=== PATIENT | male | born 1960 ===

== ENCOUNTER 2025-02-10 09:41 | Emergency (ER) | payer BC, SELFPAY ==
--- NOTE | ~2025-02-10 | CT_ITS ---
EXAMINATION: CT cervical spine wo con DATE: 02/10/2025 09:57 INDICATION: Fall. TECHNIQUE: Computed tomography (CT) of the cervical spine was performed without intravenous contrast. Automated exposure control and iterative reconstruction technique were employed. The dose-length product was 235.00 mGy-cm. COMPARISON: None FINDINGS: There is kyphosis of cervical spine. There is 10 degrees levoscoliosis of cervical spine. Vertebral body heights are normal. There is mildly decreased disc height at C4-C5. There is multilevel [id number] facet joint osteoarthritis. There is multilevel mild uncovertebral joint osteoarthritis. On the right, there is mild neural foraminal stenosis at C7-T1. There is mild central canal stenosis at C4-C5. IMPRESSION: 1. No fracture. 2. Mild cervical spondylosis. Reviewed, dictated and finalized at location E.
--- NOTE | ~2025-02-10 | CT_ITS ---
EXAMINATION: CT brain wo con DATE: 02/10/2025 09:57 INDICATION: Fall. TECHNIQUE: Computed tomography (CT) of the head was performed without intravenous contrast. The mA was adjusted according to patient size. Iterative reconstruction technique was employed. The dose-length product was 605.33 mGy-cm. COMPARISON: None FINDINGS: There is no intracranial hemorrhage, acute infarction, or abnormal intracranial mass lesion. The ventricles are normal in size. There is a left anterior superior scalp laceration. There is mild mucosal thickening in the paranasal sinuses. The mastoid air cells are normal. The orbits are normal. IMPRESSION: 1. Normal brain. Reviewed, dictated and finalized at location E. IMPRESSION: 1. Normal brain.
[2025-02-10 09:45] VITALS: BP 148/89; PULSE 73; RESP 16; TEMP 36.4; O2SAT 99
--- NOTE | 2025-02-10 11:58 | ED_ITS ---
HPI - Head Injury General Chief complaint: Head Injury Stated complaint: TRIP AND FALL HEAD HIT STEP Time Seen by Provider: 02/10/25 11:07 Source: patient and RN notes reviewed Mode of arrival: EMS Limitations: no limitations History of Present Illness HPI Narrative: 64-year-old male presents to ER complaining of fall today. Patient was walking outside of the building when he tripped and fell up steps landing on his head. Patient denies any loss of consciousness, headaches, nausea, vomiting, dizziness, lightheadedness, chest pain, breathing problems, slurred speech, confusion, seizures, or any other symptoms. Patient is unsure of his tetanus status. Patient has a laceration to the top of his head. Patient denies any significant past medical problems. Patient denies taking any blood thinners. Related Data Allergies Allergy/AdvReac Type Severity Reaction Status Date / Time No Known Allergies Allergy Verified 02/10/25 09:42 Review of Systems Review of Systems: CONSTITUTIONAL: Denies fever, chills, or sweats. EYES: Denies visual changes, redness, or discharge. ENT: Denies rhinorrhea, congestion, sore throat, or otalgia. CARDIOVASCULAR: Denies chest pain, palpitations, dizziness, lightheadedness, or edema. RESPIRATORY: Denies cough or dyspnea. GASTROINTESTINAL: Denies abdominal pain, nausea, vomiting, or diarrhea. GENITOURINARY: Denies dysuria or hematuria. SKIN: Denies rash or itching. Positive for laceration. MUSCULOSKELETAL: Denies back pain, joint pain, or myalgia. NEUROLOGIC: Denies headache, loss of consciousness, focal weakness, slurred speech, facial droop, numbness, or weakness. PSYCHIATRIC: Denies anxiety or depression. All other systems reviewed are negative, except as documented in HPI. PMFSH Comments At the time of my signature, I reviewed and agree with the nursing past medical, surgical, social, and family history. There is no relevant family history pertinent to the patient complaint. Exam Narrative: GENERAL: This is a well-nourished, well-developed adult, in no apparent distress. They are non ill-appearing, nontoxic appearing. HEAD: normocephalic. Laceration to the left medial proximal scalp near the forehead. Lacerations measuring approximately 5 cm long. It is irregular. It is on approximated but approximates well with manipulation. No area of fluctuance, no induration, no surrounding cellulitis. Nontender to palpate. No other traumatic injuries to face or head. EYES: Sclera clear/white. Conjunctiva normal. Vision is grossly intact. Extraocular movements intact. Pupils PERRLA. No hyphema or subconjunctival hemorrhage. EARS: External ears normal, Hearing grossly intact. Auditory canals clear without redness or swelling. TMs with good cone of light, pearly swenson without erythema or swelling. No hemotympanum. NOSE: External nose normal Nasal turbinates are redness or swelling. No rhinorrhea. No septal hematoma. THROAT: Mucous membranes moist, posterior pharynx clear without redness or swelling. Uvula midline. NECK: Neck supple, non-tender without lymphadenopathy, masses or thyromegaly. No cervical point tenderness, crepitus, or step-offs. CARDIOVASCULAR: Regular rate and rhythm without murmurs, gallops, or rubs. RESPIRATORY: Clear to auscultation. Breath sounds equal bilaterally. No wheezes, rales, or rhonchi. SKIN: warm, Dry, intact with no suspicious lesions or rash, good texture and turgor. NEURO: awake, alert, and oriented to person, place and time. There were no obvious focal neurologic abnormalities. EXTREMITIES: No joint tenderness, effusion, or edema noted. BACK: Nontender without deformity. No CVA tenderness. No thoracic or lumbar point tenderness, crepitus, or step-offs. Course Course Emergency Course: Portions of this record may have been created with voice recognition software Vital Signs Vital signs: Vital Signs Temperature 97.6 F 02/10/25 09:45 Pulse Rate 73 02/10/25 09:45 Respiratory Rate 16 02/10/25 09:45 Blood Pressure 148/89 H 02/10/25 09:45 Pulse Oximetry 99 02/10/25 09:45 Temperature 97.6 F 02/10/25 09:45 Pulse Rate 73 02/10/25 09:45 Respiratory Rate 16 02/10/25 09:45 Blood Pressure 148/89 H 02/10/25 09:45 Pulse Oximetry 99 02/10/25 09:45 Reviewed Procedures Laceration Laceration 1: Date: 02/10/25 Time: 11:50 Site: scalp Side (If applicable): left Size (cm): 5 Description: irregular Depth: simple, single layer Local Anesthetic: lidocaine 1% and with epi Amount of anesthesia used (mL): 2.5 Pre-repair: wound explored, irrigated extensively and minor debridement ====== Skin Level ====== Skin layer closed with: nylon Size (cm): 4-0 Number of sutures: 7 Technique: simple, interrupted ====== Subcutaneous Layer ====== ====== Muscle Layer ====== ====== Tendon Layer ====== Dressing: Antibiotic ointment. Critical Care Time Critical Care Time Critical Care Time: No Discharge Plan Discharge Clinical Impression: Fall Qualifiers: Encounter type: initial encounter Qualified Code(s): W19.XXXA - Unspecified fall, initial encounter Laceration of head Qualifiers: Encounter type: initial encounter Location of open wound of head: scalp Foreign body presence: without foreign body Qualified Code(s): S01.01XA - Laceration w ithout foreign body of scalp, initial encounter Patient Disposition: Home Condition: Stable Instructions: Laceration (ED), Head Injury (ED) Additional Instructions: H your er tetanus is updated today. CT of your brain and cervical spine were negative for any fractures or acute findings. Your sutures need to be removed in 7 days. ?Wear the dressing that has been applied for the first 24 hours to allow a scab to start forming. ?After this, you may remove and wash as normal with soap and water. ?Do NOT wash with peroxide or alcohol. You may apply antibiotic ointment daily or Vaseline daily to the wound. Avoid dirty water to the wound has healed completely. Take tylenol or ibuprofen at home as needed for pain. Follow instructions on the bottle. Follow up with your PCP 3-5 days. Please return to the ER if you develops severe headaches, vision changes, dizziness, lightheadedness, nausea, vomiting, chest pain, breathing problems, one-sided weakness, slurred speech, facial drooping, or any signs of infection to the wound such as increased redness, swelling, pain, fevers, green/yellow drainage come by eczema chills, or any serious concerns. Patient Language: Tunisian Follow-up/Referrals: UNKNOWN,DOCTOR [Primary Care Provider] Time of Disposition: 12:07
[2025-02-10] MEDS: TETANUS,DIPHTHERIA,AC PERTUSSIS ADULT (0.5 ML) BOOSTRIX IM (12:04)
--- OUTSIDE RECORDS SUMMARY | 2025-02-10 14:03 | XMS_ITS | Clinical Summary ---
Author Organization [facility] A Address [address] [place] [address] Care Team Providers Care Sales Support Manager Name Role Phone Jhonatan Archer MD Unavailable [phone] Frankie Fisher MD Primary Care Provider Allergies No known active allergies Medications metFORMIN (GLUCOPHAGE) 500 mg tablet Take 1 tablet (500 mg total) by mouth 2 (two) times a day with meals 60 tablet 11 4 Active atorvastatin (LIPITOR) 20 mg tabletIndications:P ure hypercholesterolemi a,Type 2 diabetes mellitus with hyperlipidemia (HCC) Take 1 tablet (20 mg total) by mouth daily 90 tablet [address] (PROTONIX) 40 mg EC tablet Take 1 tablet by mouth once daily 90 tablet 5 Active famotidine (PEPCID) 40 mg tablet Take 1 tablet by mouth nightly 90 tablet 5 Active Active Problems Problem Noted Date Diagnosed Date S/P laparoscopic cholecystectomy 02/11/2024 Assessment & Plan (02/11/2024 11:44 AM CDT): Status post recent laparoscopic cholecystectomy for cholecystitis with cholelithiasis, he has postop follow-up appointment today, has intermittent pain and still on limited duty for additional 7-10 days, refills provided for pain medication for use intermittently which he has already been using less frequently and will not need any more refills after this Pulmonary nodule 08/10/2021 Overview (04/03/2024): 6mm RLL on ct 01/2021 CT Chest wo contrast 04/21 IMPRESSION: No acute findings in the chest. Pulmonary nodules measuring up to 6 mm are stable since 09/14/2021. No specific further follow-up is recommended by Fleischner society criteria, unless clinically warranted. Interval cholecystectomy. Several small calcific densities at the medial aspect of the gallbladder fossa and along the posterior right radha liver may be retained stones Assessment & Plan (07/09/2023 2:25 PM CDT): Patient aware CT chest due September 2023 and will call to schedule. Assessment & Plan (03/05/2023 1:23 PM SALES SUPPORT MANAGER): CT chest due, call for results. Assessment & Plan (08/23/2022 9:31 AM CDT): One year follow-up CT chest due in August and has already been ordered and patient instructed to call scheduling for setting up a date for the evaluation. Call back for results Assessment & Plan (02/24/2022 4:56 PM CDT): Repeat CT chest August 2022. Assessment & Plan (08/10/2021 9:22 AM CDT): Found on CT abdomen pelvis in January with recommendations for 6-12 month follow-up. Patient former smoker therefore will check at the end of August and he will call back for results Esophagitis 02/08/2021 Overview (06/29/2024): Repeat EGD 04/2026 Follows with GI Assessment & Plan (06/29/2024 2:24 PM SALES SUPPORT MANAGER): - chronic condition, stable status - following with GI - currently on famotidine in the evening and pantoprazole in the morning per GI. Repeat EGD due April 2026. The current medical regimen is effective; continue present plan and medications. EGD with gastritis and esophagitis January 2021 EGD 10/2021 severe esophagitis without blount's, repeat one year recommended EGD 04/2023 with continued esophagitis neg for blount's Assessment & Plan (11/12/2023 2:50 PM CDT): - chronic condition, stable status - following with GI - currently on famotidine in the evening and pantoprazole in the morning per GI. Repeat EGD due April 2026. EGD with gastritis and esophagitis January 2021 EGD 10/2021 severe esophagitis without blount's, repeat one year recommended EGD 04/2023 with continued esophagitis neg for blount's Assessment & Plan (07/09/2023 2:24 PM CDT): Continue famotidine in the evening and pantoprazole in the morning. Repeat EGD due April 2026. Assessment & Plan (03/05/2023 1:24 PM SALES SUPPORT MANAGER): EGD scheduled for 04/2023. Assessment & Plan (08/23/2022 9:33 AM CDT): Restart PPI and EGD ordered for end of October. Assessment & Plan (02/24/2022 4:57 PM CDT): Continue PPI and repeat EGD October 2022. Assessment & Plan (08/10/2021 9:22 AM CDT): Patient needs to follow-up with Dr. Jiang regarding repeat EGD and patient letter reprinted from [facility] with his phone number. Assessment & Plan (02/08/2021 9:47 AM CDT): Continue his pantoprazole and follow-up with GI as a recommended 1 month. Iron deficiency anemia secon dayron to inadequate dietary iron intake 12/07/2020 Overview (07/09/2023): Colonoscopy hemorrhoids only December 2019 EGD with gastritis and esophagitis January 2021 CT abdomen pelvis January 2021 without sources of iron loss. UA neg for blood 01/2021. Iron levels and CBC improved quickly with iron supplementation January 2021 EGD 10/2021 severe esophagitis without blount's, repeat one year recommended EGD 04/2023 with continued esophagitis neg for blount's Assessment & Plan (06/29/2024 2:23 PM SALES SUPPORT MANAGER): - chronic condition, well controlled - anemia has resolved - currently on once daily iron supplementation 325 mg daily - most recent lab as shown below The current medical regimen is effective; continue present plan and medications. Colonoscopy hemorrhoids only December 2019 EGD with gastritis and esophagitis January 2021 CT abdomen pelvis January 2021 without sources of iron loss. UA neg for blood 01/2021. Iron levels and CBC improved quickly with iron supplementation January 2021 EGD 10/2021 severe esophagitis without blount's, repeat one year recommended EGD 04/2023 with continued esophagitis neg for blount's Lab Results Component Value Date IRON 42 (L) 06/26/2024 TIBC 315 06/26/2024 FERRITIN 58 06/26/2024 Lab Results Component Value Date WBC 5.5 06/26/2024 HGB 13.3 06/26/2024 HCT 42.6 06/26/2024 MCV 85.0 06/26/2024 LABPLAT 215 06/26/2024 Assessment & Plan (11/12/2023 2:35 PM CDT): - chronic condition, improved but not at goal - patient got restarted back on daily iron supplementation by previous PCP - most recent lab as shown below - continue daily supplementation Colonoscopy hemorrhoids only December 2019 EGD with gastritis and esophagitis January 2021 CT abdomen pelvis January 2021 without sources of iron loss. UA neg for blood 01/2021. Iron levels and CBC improved quickly with iron supplementation January 2021 EGD 10/2021 severe esophagitis without blount's, repeat one year recommended EGD 04/2023 with continued esophagitis neg for blount's Lab Results Component Value Date IRON 52 11/08/2023 TIBC 320 11/08/2023 FERRITIN 48 11/08/2023 Lab Results Component Value Date WBC 5.6 11/08/2023 HGB 14.0 11/08/2023 HCT 43.5 11/08/2023 MCV 84.0 11/08/2023 LABPLAT 191 11/08/2023 Assessment & Plan (07/09/2023 2:24 PM CDT): Restart once daily iron supplementation. Repeat iron levels and CBC before next visit. Assessment & Plan (03/05/2023 1:23 PM SALES SUPPORT MANAGER): Check cbc and iron levels this week and call for results. Assessment & Plan (08/23/2022 9:32 AM CDT): Has been off of iron since last visit. Repeat iron levels and CBC tomorrow and call back for results. Restart PPI. Capsule endoscopy not done and may need to be done depending on results of his EGD and iron levels and blood counts. Assessment & Plan (02/24/2022 4:59 PM CDT): Restart iron supplementation. Capsule endoscopy recommended. Repeat EGD October 2022. Continue PPI Assessment & Plan (08/10/2021 9:21 AM CDT): Continue holding iron supplementation. Check CBC and iron levels before next visit. EGD with gastritis and esophagitis January 2021. Colonoscopy with hemorrhoid December 2019. CT abdomen pelvis January 2020 without sources of bleeding. UA negative for blood in January 2021. Will need to consider capsule endoscopy if iron counts or hemoglobin drop by next visit off of iron supplementation. Assessment & Plan (02/08/2021 9:47 AM CDT): Continue iron supplement 1 tablet daily for now. Repeat iron levels and CBC before next visit. If normalized and no other cause for iron deficiency found between now and then, would recommend holding iron supplementation thereafter to see if iron levels and CBC hold without supplementation. Follow-up with GI in 1 month regarding iron deficiency and his abnormal EGD.. Assessment & Plan (12/07/2020 11:29 AM CDT): Fairly normal colonoscopy except for hemorrhoids last December. EGD and UA now. Start iron tablets. Repeat iron levels and CBC in 2 months. Further workup pending EGD results. May need GI referral for capsule endoscopy and/or treatment of his hemorrhoids. Warning signs of worsened anemia discussed at length which would prompt repeat visit here or to the ER. Will see him back in 2 months for physical sooner if needed. Pure hypercholesterolemia 01/19/2020 Assessment & Plan (06/29/2024 2:22 PM SALES SUPPORT MANAGER): - chronic condition - status: is adequately controlled. - current management/medications: Atorvastatin 20 mg daily, states has missed it for 2 days, encouraged to be more consistent with it - other comorbid conditions:hypertension, DM2 - patient is compliant with medications. - most recent LDL as shown below - maintain a healthy weight, diet - will monitor closely The current medical regimen is effective; continue present plan and medications. Lab Results Component Value Date LDLCALC 110 06/26/2024 LDLCALC 86 11/08/2023 LDLCALC 71 03/06/2023 Lab Results Component Value Date TRIG 68 06/26/2024 TRIG 118 11/08/2023 TRIG 86 03/06/2023 Lab Results Component Value Date ALT 35 02/01/2024 AST 25 02/01/2024 ALKPHOS 89 02/01/2024 BILITOT 0.4 02/01/2024 Assessment & Plan (11/12/2023 2:33 PM CDT): - chronic condition - status: is adequately controlled. - current management/medications: Atorvastatin 20 mg daily - other comorbid conditions:hypertension, DM2 - patient is compliant with medications. - most recent LDL as shown below - maintain a healthy weight, diet - will monitor closely - continue current management Lab Results Component Value Date LDLCALC 86 11/08/2023 LDLCALC 71 03/06/2023 LDLCALC 76 08/24/2022 Lab Results Component Value Date TRIG 118 11/08/2023 TRIG 86 03/06/2023 TRIG 120 08/24/2022 Lab Results Component Value Date ALT 35 11/08/2023 AST 23 11/08/2023 ALKPHOS 101 11/08/2023 BILITOT 0.4 11/08/2023 Assessment & Plan (07/09/2023 2:24 PM CDT): Well controlled on current therapy and will check a lipid panel and LFTs in 4months. Assessment & Plan (03/05/2023 1:24 PM SALES SUPPORT MANAGER): Cont atorvastatin and check lipids/lfts this week and call for results. Assessment & Plan (08/23/2022 9:32 AM CDT): Continues atorvastatin check lipids and LFTs tomorrow call back for results. Check before next visit as well. Diet exercise discussed. Assessment & Plan (02/24/2022 4:57 PM CDT): Well controlled on current therapy and will check a lipid panel and LFTs in 6 months. Assessment & Plan (08/10/2021 9:21 AM CDT): Well controlled on current therapy and will check a lipid panel and LFTs in 6 months. Assessment & Plan (02/08/2021 9:44 AM CDT): Well controlled on current therapy and will check a lipid panel and LFTs in 6 months. Assessment & Plan (12/07/2020 11:27 AM CDT): Make sure he is taking his atorvastatin each and every day. Assessment & Plan (08/12/2020 9:14 AM CDT): Well controlled on current therapy and will check a lipid panel and LFTs in 4months. Assessment & Plan (04/16/2020 12:14 PM SALES SUPPORT MANAGER): Well controlled on current therapy and will check a lipid panel and LFTs in 4 months. Assessment & Plan (01/19/2020 2:13 PM CDT): He has an elevated risk for ASCVD and therefore recommend atorvastatin 20 mg p.o. q.h.s. and warned of potential side effects and call back if any develop. Check lipids and LFTs before next visit in 3 months. Type 2 diabetes mellitus with hyperlipidemia Assessment & Plan (06/29/2024 2:24 PM SALES SUPPORT MANAGER): - chronic condition, well controlled - goal A1c <7 - most recent A1c as shown below - urine albumin creatinine ratio - up to date - Currently on Atorvastatin 20 mg nightly - diabetic medications - Metformin 500 mg BID - most recent labs as shown below - recommend getting a dilated eye exam The current medical regimen is effective; continue present plan and medications. Lab Results Component Value Date HGBA1C 6.8 (H) 06/26/2024 HGBA1C 6.6 02/11/2024 HGBA1C 6.9 (H) 11/08/2023 Lab Results Component Value Date LDLCALC 110 06/26/2024 CREATININE 0.92 02/01/2024 Assessment & Plan (02/11/2024 12:09 PM CDT): - chronic condition, improved - most recent A1c as shown below - urine albumin creatinine ratio - up to date - Currently on Atorvastatin 20 mg nightly - diabetic medications - he was started on Metformin 500 mg BID at time of discharge from hospital, continue current medication - most recent labs as shown below - recommend getting a dilated eye exam - continue current management Lab Results Component Value Date HGBA1C 6.6 02/11/2024 HGBA1C 6.9 (H) 11/08/2023 HGBA1C 6.6 07/09/2023 Lab Results Component Value Date LDLCALC 86 11/08/2023 CREATININE 0.92 02/01/2024 Assessment & Plan (11/12/2023 2:32 PM CDT): - chronic condition, stable status - A1c well controlled with diet exercise. Continue for now check A1c before next visit. - urine albumin creatinine ratio - up to date - Statin use - current, atorvastatin 20 mg nightly - diabetic medications - none - most recent labs as shown below - continue current management Lab Results Component Value Date HGBA1C 6.9 (H) 11/08/2023 HGBA1C 6.6 07/09/2023 HGBA1C 7.2 (H) 08/24/2022 Lab Results Component Value Date LDLCALC 86 11/08/2023 CREATININE 1.17 11/08/2023 Assessment & Plan (07/09/2023 2:24 PM CDT): A1c well controlled with diet exercise. Continue for now check A1c before next visit. Assessment & Plan (03/05/2023 1:40 PM SALES SUPPORT MANAGER): Check labs today and call for results. Patient aware that will start metformin if A1c above 7.. Assessment & Plan (08/23/2022 9:31 AM CDT): Continue his atorvastatin and efforts at diet exercise and weight loss and labs will be done tomorrow and he should call back for results. Check again before next visit as well. Assessment & Plan (02/24/2022 4:56 PM CDT): A1c, LDL, and blood pressure currently well controlled on current regimen. Check a yearly diabetic eye exam and blood sugars daily. Monofilament testing is intact. Assessment & Plan (08/10/2021 9:21 AM CDT): A1c, LDL, and blood pressure currently well controlled on current regimen. Check a yearly diabetic eye exam and blood sugars daily. Monofilament testing is intact. Assessment & Plan (02/08/2021 9:45 AM CDT): A1c, LDL, and blood pressure currently well controlled on current regimen. Check a yearly diabetic eye exam and blood sugars daily. Monofilament testing is intact. Assessment & Plan (12/07/2020 11:27 AM CDT): A1c creeping up slowly. Importance of diet exercise discussed. Check labs after next visit. Assessment & Plan (08/12/2020 9:14 AM CDT): A1c at goal. Stressed importance of diet exercise. Check labs before next visit. Assessment & Plan (04/16/2020 12:14 PM SALES SUPPORT MANAGER): Reduce sugars and carbs and increase exercise and lose a few lb and he is warned of the proximity to diabetes. Check fasting blood sugar and A1c before next visit. Assessment & Plan (01/19/2020 2:13 PM CDT): Patient should reduce sugar and carbs, increase exercise, maintain proper body weight, and will check an A1c once or twice yearly. History of insomnia 01/19/2020 Overview (12/07/2020): Failed dayvigo 10mg, zzquil Assessment & Plan (02/08/2021 9:45 AM CDT): Increase trazodone to 2 tablets at bedtime. If no improvement after 4 days then increase to 3 tablets at bedtime for 1 week. If no improvement call back for alternatives. Assessment & Plan (12/07/2020 11:28 AM CDT): Stop dayvigo. Start trazodone 50 mg at bedtime. Increase to 100 mg if needed. Assessment & Plan (08/12/2020 9:14 AM CDT): Increased dayvigo to 10mg and call back if no improvement. Consider trazodone if needed. Assessment & Plan (04/16/2020 12:13 PM SALES SUPPORT MANAGER): Trial of Dayvigo and side effects discussed and call back if any develop. Ten day voucher provided. Call back if needs higher dose. Assessment & Plan (01/19/2020 2:13 PM CDT): Trial of ZZZquil and call back if no improvement. Mass of left submandibular region 12/21/2019 Overview (11/12/2023): s/p left submandbular gland excision in 11/2020 Assessment & Plan (08/12/2020 9:14 AM CDT): Follow-up with his mitigation supervisor for excision as they direct. Assessment & Plan (04/16/2020 12:14 PM SALES SUPPORT MANAGER): Follow-up with his mitigation supervisor for excision as they direct. Assessment & Plan (02/24/2020 1:54 PM CDT): Excision of a Left Subplatysma Neck Mass Risks and complications: Anesthesia, bleeding, infection, benign versus malignant pathology, recurrence of lesion, injury to arteries, nerves and veins, scarring and need for further treatment Assessment & Plan (01/19/2020 2:12 PM CDT): ENT evaluation later today for further management. Assessment & Plan (12/21/2019 4:48 PM CDT): Currently asymptomatic. Check LDH and CT soft tissues neck and further orders pending results. Will most likely need otolaryngology consultation. Resolved Problems Problem Noted Date Diagnosed Date Resolved Date Cholecystitis 01/27/2024 02/11/2024 Abdominal pain 01/23/2024 02/11/2024 Calculus of gallbladder 08/10/202101/28 Overview (08/10/2021): Numerous stones ct 02/2021 Tooth pain 02/08/2021 11/12/2023 Assessment & Plan (02/08/2021 9:48 AM CDT): With right lower tooth pain and associated lymph node swelling that comes and goes with antibiotic therapy, he probably has a carry or underlying infection/abscess that needs dental evaluation and he is aware to see his dentist at his earliest appointment. Snoring 04/16/2020 06/29/2024 Assessment & Plan (04/16/2020 12:16 PM SALES SUPPORT MANAGER): Recommended nasal strips and oral devices. Consider testing for sleep apnea if develops more persistent daytime hypersomnia. Mass of submandibular region 03/03/2020 11/12/2023 Overview (03/03/2020): Added automatically from request for surgery [id number] Enlargement of submandibular gland 01/19/2020 11/12/2023 Assessment & Plan (12/30/2020 1:56 PM CDT): Augmentin twice daily with a meal May remove the skin glue in one more week Follow up with Dentist regarding Right sided dental pain Assessment & Plan (01/19/2020 3:40 PM CDT): Left Submandibular gland fine needle aspiration and core biopsy for pathology and flow cytometry Consider excision based on Biopsy results Screen for colon cancer 12/25/201910/27 Overview (12/25/2019): Added automatically from request for surgery [id number] Healthcare maintenance 12/21/201911/11 Assessment & Plan (03/05/2023 1:39 PM SALES SUPPORT MANAGER): Flu shot due. COVID booster recommended. Tetanus booster every 10 years. Shingrix recommended. PSA to be done this week and call back for results. Colonoscopy due December 2026. Get fasting labs done this week and call back for results. Then order labs for next visit in 4 months. Assessment & Plan (02/24/2022 4:59 PM CDT): Flu shot each January. COVID booster recommended. Tetanus booster every 10 years. Shingrix recommended. PSA yearly. Colonoscopy due December 2026. Will see him back in 6 months with lab sooner if needed. Assessment & Plan (02/08/2021 9:49 AM CDT): Flu shot will be done at the hospital. COVID vaccine completed. Tetanus booster every 10 years. Shingrix recommended. PSA yearly. Colonoscopy due December 2026. Will see him back in 6 months with lab sooner if needed. Assessment & Plan (12/21/2019 4:48 PM CDT): Flu shot recommended this January. He is to check with Occupational Health regarding previous immunizations and give us a list. Shingrix recommended. Colonoscopy and PSA ordered. Will see him back in 1 month for repeat visit to go over fasting lab work sooner if needed. Immunizations Immunization Administration Dates Next Due Hep A, Unspecified 02/23/2013,08/25/2012 Influenza, Unspecified 03/03/2024,2023(Deferred: Patient Refused),03/10/2023(Deferred: Patient Refused),02/12/2022,01/27/2021(Deferred : Patient Refused),12/07/2020(Deferred: Patient Refused),08/12/2020(Deferred: Patient Refused),01/28/2020(Deferred: Patient Refused),01/28/2020(Deferred: Patient Refused),01/19/2020(Deferred: Patient Refused),12/21/2019(Deferred: Patient Refused),02/15/2019 MMR 08/28/2012 Moderna SARS-CoV-2 Monovalen t Vaccination (12+ YRS) 04/17/2021,05/24/2020,04/26/2020 PPD TEST 08/29/2012 Tdap 12/25/2019 Surgical History Surgery Date Site/Laterality Comments US GUIDED BIOPSY LYMPH NODE SUPERFICIAL LEFT 02/10/2020 N/A COLONOSCOPY 01/27/2020 1st SUBMANDIBULAR GLAND EXCISION 11/27/2020 - 12/27/2020 Left CHOLECYSTECTOMY 01/28/2024 - 02/27/2024 Medical History Medical History Date Comments Hyperlipidemia GERD (gastroesophageal reflux disease) Type 2 diabetes mellitus Family History Medical History Relation Name Comments Cancer Sister Relation Name Status Comments Father Mother Sister Social History Tobacco Use Types Packs/Day Years Used Date Smoking Tobacco: Never Smokeless Tobacco: Never Tobacco Cessation:Counseling Given: Yes Alcohol Use Standard Drinks/Week Comments Not Asked 0 (1 standard drink = 0.6 oz pur e alcohol) occasional [email or web address] Utilities Answer Date Recorded In the past 12 months has [employer], gas, oil, or water [employer] threatened to shut off services in your home? No 01/31/2024 Social Connection and Isolation Panel Answer Date Recorded In a typical week, how many times do you talk on the phone with family, friends, or neighbors? More than three times a week 01/31/2024 How often do you get togethe r with friends or relatives? Once a week 01/31/2024 How often do you attend chur or jew services? Never 01/31/2024 Do you belong to any clubs o r organizations such as tenriism groups, unions, fraternal or athletic groups, or school groups? No 01/31/2024 How often do you attend meet ings of the clubs or organizations you belong to? Never 01/31/2024 Are you , , di vorced, , never , or living with a partner? 01/31/2024 AUDIT-C Answer Date Recorded Q1: How often do you have a drink containing alcohol? Never 06/29/2024 Q2: How many drinks containi ng alcohol do you have on a typical day when you are drinking? Patient does not drink Q3: How often do you have si x or more drinks on one occasion? Never 06/29/2024 Overall Financial Resource Strain (CARDIA) Answe r Date Recorded How hard is it for you to pa y for the very basics like food, housing, medical care, and heating? Very hard 01/31/2024 PHQ-2 Answer Date Recorded PHQ-2 Total Score (If total score is 3 or more points, staff should administer the PHQ-9) 0 06/29/2024 Hunger Vital Sign Answer Date Recorded Within the past 12 months, y ou worried that your food would run out before you got the money to buy more. Never true 01/31/20 24 Within the past 12 months, t he food you bought just didn't last and you didn't have money to get more. Never true 01/31/2024 PRAPARE - Transportation Answer Date Re corded In the past 12 months, has l ack of transportation kept you from medical appointments or from getting medications? No 07/2023 In the past 12 months, has l ack of transportation kept you from meetings, work, or from getting things needed for daily living? No 01/31/2024 Housing Stability Vital Sign Answer Isael e Recorded In the last 12 months, was t here a time when you were not able to pay the mortgage or rent on time? No 01/31/2024 In the past 12 months, how m any times have you moved where you were living? 0 01/31/2024 At any time in the past 12 m [facility], were you homeless or living in a half-way (including now)? No 01/31/2024 Personal Safety Answer Date Recorded Have you ever been in or are you currently in a harmful physical or emotional relationship or is someone making you feel afraid or unsafe? Denies 01/27/2024 Sex and Gender Information Value Date Recorded Sex Assigned at Not on file Legal Sex Male 11:07 AM SALES SUPPORT MANAGER Gender Identity Male 01/20/2021 1:26 PM CDT Sexual Orientation Not on file Obstetrics History Last Filed Vital Signs Vital Sign Reading Time Taken Comments Blood Pressure 100/68 06/29/2024 1:48 PM SALES SUPPORT MANAGER Pulse 84 06/29/2024 1:48 PM SALES SUPPORT MANAGER Temperature 36.5 C (97.7 F) 06/29/2024 1:48 PM SALES SUPPORT MANAGER Respiratory Rate 16 06/29/2024 1:48 PM SALES SUPPORT MANAGER Oxygen Saturation 95% 06/29/2024 1:48 PM SALES SUPPORT MANAGER Inhaled Oxygen Concentration - - Weight 76.7 kg (169 lb) 06/29/2024 1:48 PM SALES SUPPORT MANAGER Height 167.6 cm (5' 5.98) 06/29/2024 1:48 PM CS T Body Mass Index 27.29 06/29/2024 1:48 PM SALES SUPPORT MANAGER Plan of Treatment Health Maintenance Due Date Last Done Comments Dilated Eye Exam 1960 Hepatitis B Screening 1978 Pneumococcal vaccine <65 (1 of 2 - PCV) 1979 Zoster Vaccine (1 of 2) 2010 Regular Well Visit/Exam 18-64 03/05/2024, 02/15/2022, 02/08/2021, Additional history exists Foot Exam 07/08/2024 07/09/2023, 10/2022, 02/15/2022, Additional history exists Hemoglobin A1C 12/24/2024 06/26/2024, 01/27, 11/08/2023, Additional history exists Covid-19 Vaccine (2024- 6 season) 2024 04/17/2021, 05/24/2020, 04/26/2020 Influenza Vaccine (#1) 2024 , 02/12/2022, 02/15/2019 eGFR 01/31/2025 02/01/2024, 07/2023, 01/30/2024, Additional history exists Albumin Creatinine Ratio, Urine 06/26/2025 06/26/2024, 11/08/2023, 03/06/2023, Additional history exists Lipid Panel 06/26/2025 06/26/2024, 10/27, 03/06/2023, Additional history exists Depression Screening 06/29/2025 06/29/2024, 02/11/2024, 11/12/2023, Additional history exists Prostate Cancer Screening-PSA 06/26/2026, 02/14/2022, 12/01/2020, Additional history exists Colon Cancer Screening-Colonoscopy 01/26/2027 01/27/2020 DTaP/Tdap/Td Vaccine (2 - Td or Tdap) 12/24/2029 12/25/2019 Hepatitis C Screening Completed 12/24/2019 Colon Cancer Screening-CT Colonography Discontinued 01/27/2020 Colon Cancer Screening-DNA Stool Discontinued 01/27/20 Colon Cancer Screening-FIT Discontinued 01/27/2020 Colon Cancer Screening-Sigmoidoscopy Discontinued 01/27/2020 Procedures Procedure Name Priority Date/Time Associated Diagnosis Comments ALBUMIN CREATININE RATIO, URINE Routine 06/26/2024 9:20 AM SALES SUPPORT MANAGER Type 2 diabetes mellitus with hyperlipidemia (HCC) HEMOGLOBIN A1C Routine 06/26/2024 9:15 AM SALES SUPPORT MANAGER Type 2 diabetes mellitus with hyperlipidemia (HCC) LIPID PANEL Routine 06/26/2024 9:15 AM SALES SUPPORT MANAGER Pure hypercholesterolemia Type 2 diabetes mellitus with hyperlipidemia (HCC) PSA SCREEN Routine 06/26/2024 9:15 AM SALES SUPPORT MANAGER Prostate cancer screening EGFR Routine 02/01/2024 4:18 AM CDT COLONOSCOPY 01/27/2020 12:13 PM CDT HEPATITIS C ANTIBODY Routine 12/24/2019 9:14 AM CDT Neck mass from Last 3 Months or Most Recently Relevant to Health Maintenance Results * Albumin Creatinine Ratio, Urine (06/26/2024 9:20 AM SALES SUPPORT MANAGER) Albumin Ur 40.5 mg/L Comment: Interpretive Data No reference range established. Current interpretive data was last revised 2018. Testing performed by: [facility], [address] [place] [address], [place]., [address] Creatinine Ur 297.0 mg/dL [facility] QUEZADA ([place]) Comment: Interpretive Data No reference range established. Current interpretive data was last revised 2018. Testing performed by: [facility], [address] [place] [address]., [id number] Albumin Creatinine Ratio, Ur 14 1 - 29 mg/g SAS[facility] QUEZADA ([place]) Comment:Testing performed by : [facility], [address] [place] [address]., [id number] Urine 06/26/2024 9:20 AM SALES SUPPORT MANAGER 06/26/2024 11:04 AM SALES SUPPORT MANAGER Frankie Fisher MD LAB URINE ORDERABLES Fi nal Result Performing Organization Address [facility]/ZIP Co de Phone Number [facility] ([place]) [address] [facility] [place] [address] * PSA screen (06/26/2024 9:15 AM SALES SUPPORT MANAGER) PSA-Total 0.47 <=5.40 ng/mL Comment: Interpretive Data AGE SEX REFERENCE INTERVAL 0 minutes-150 years Female None 0 minutes-49 years Male None 50-59 years Male 0-3.90 60-69 years Male 0-5.40 70-79 years Male 0-6.20 80-150 years Male 0-6.20 The Fabián PSA Total assay procedure was used. Results from different manufacturers or methods may not be comparable. Serial testing should be performed using the same method. Current interpretive data last revised 21. Blood 06/26/2024 9:15 AM SALES SUPPORT MANAGER 06/26/2024 9:34 AM SALES SUPPORT MANAGER Frankie Fisher MD LAB BLOOD ORDERABLES Fi nal Result Performing Organization Address City/[facility]/ZIP Co de Phone Number SASCHA QUEZADA ([place]) 1 [facility] [place] [address] * (ABNORMAL) Hemoglobin A1c (06/26/2024 9:15 AM SALES SUPPORT MANAGER) Hgb A1C 6.8(H) 4.0 - 5.6 % Estimated Average Glucose 148 mg/dL [facility] QUE[facility]ADA ([place]) Comment: The ADA recommends reporting an estimated Average Glucose (eAG) with all Hemoglobin A1c results using the equation derived from a study of 507 normal and diabetic adults. Minority populations were underrepresented and children were not included. (Diabetes Care 31:7293-2436, 2008). The eAG is not equivalent to a fasting glucose. Blood 06/26/2024 9:15 AM SALES SUPPORT MANAGER 06/26/2024 9:34 AM SALES SUPPORT MANAGER us Frankie Fisher MD LAB BLOOD ORDERABLES Fi nal Result [facility] QUEZADA ([place]) 1 [facility] [place] [address] * Lipid panel (06/26/2024 9:15 AM SALES SUPPORT MANAGER) Cholesterol 168 30 - 199 mg/dL Comment: Interpretive Data Ages < or = 19 years Acceptable: <170 mg/dL Borderline high: 170-199 mg/dL High: >or= 200 mg/dL Ages > or = 20 years Desirable: <200 mg/dL Borderline high: 200-239 mg/dL High: >or= 240 mg/dL Literature References: 1. Expert Panel on Integrated Guidelines for Cardiovascular Health and Risk Reduction in Children and Adolescents. Pediatrics 2011;128:S213 2. NCEP Expert Panel. Circulation 2004;110:227 Current Interpretive Data was last revised on 2017. Triglycerides 68 <=149 mg/dL [facility] QUEZADA ([place]) Comment: Interpretive Data Ages < or = 9 years Acceptable: <75 mg/dL Borderline high: 75-99 mg/dL High: >or= 100 mg/dL Ages 10 to 20 years Acceptable: <90 mg/dL Borderline high: 90-129 mg/dL High: >or= 130 mg/dL Ages > or = 20 years Desirable: <150 mg/dL Borderline high: 150-199 mg/dL High: 200-499 mg/dL Very high: >or= 499 mg/dL Literature References: 1. Expert Panel on Integrated Guidelines for Cardiovascular Health and Risk Reduction in Children and Adolescents. Pediatrics 2011;128:S213 2. NCEP Expert Panel. Circulation 2004;110:227 Current Interpretive Data was last revised on 2017. HDL 45 >=40 mg/dL SAS[facility] Szymanski ([place]) Comment: Interpretive Data Ages < or = 19 years Acceptable: >45 mg/dL Borderline low: 40-45 mg/dL Low: <40 mg/dL Ages > or = 20 years Desirable: >or= 60 mg/dL Low: <40 mg/dL Literature References: 1. Expert Panel on Integrated Guidelines for Cardiovascular Health and Risk Reduction in Children and Adolescents. Pediatrics 2011;128:S213 2. NCEP Expert Panel. Circulation 2004;110:227 Current Interpretive Data was last revised on 2017. LDL, calculated 110 <=129 mg/dL [facility] QUEZADA ([place]) Comment: Interpretive Data Ages < or = 19 years Acceptable: <110 mg/dL Borderline high: 110-129 mg/dL High: >or= 130 mg/dL Ages > or = 20 years Optimal: <100 mg/dL Near optimal: 100-129 mg/dL Borderline high: 130-159 mg/dL High: >160 mg/dL Calculated using the Savage LDL-C estimating equation. This equation was implemented on 2023. Prior to this date LDL-C was estimated using the Friedewald equation. Literature References: 1. Expert Panel on Integrated Guidelines for Cardiovascular Health and Risk Reduction in Children and Adolescents. Pediatrics 2011;128:S213 2. NCEP Expert Panel. Circulation 2004;110:227 3. Savage Savage et al. STACIA Cardiol. 2020 August 27;5(5):540-548. doi: 10.1001/jamacardio.2020.0013 Current Interpretive Data was last revised on 2023. Non-HDL Cholesterol 123 mg/dL [facility] QUE[facility]ADA ([place]) Comment: Interpretive Data Ages < or = 19 years Acceptable: <120 mg/dL Borderline high: 120-144 mg/dL High: >145 mg/dL Ages > or = 20 years When triglycerides are >200 mg/dL, Non-HDL cholesterol is a secondary target of therapy with treatment goals that are 30 mg/dL greater than the LDL cholesterol target. Literature References: 1. Expert Panel on Integrated Guidelines for Cardiovascular Health and Risk Reduction in Children and Adolescents. Pediatrics 2011;128:S213 2. NCEP Expert Panel. Circulation 2004;110:227 Current Interpretive Data was last revised on 2017. Chol/HDL ratio 4 BENJAMIN QUEZADA ([place]) Blood 06/26/2024 9:15 AM SALES SUPPORT MANAGER 06/26/2024 9:34 AM SALES SUPPORT MANAGER Narrative [facility] QUEZADA ([place]) - 06/26/2024 10:24 AM SALES SUPPORT MANAGER Has the patient been fasting for 8 hours or more?->No us Frankie Fisher MD LAB BLOOD ORDERABLES Fi nal Result [facility] QUEZADA ([place]) 1 [facility] [place] [address] * eGFR (02/01/2024 4:18 AM CDT) eGFR >90 >=60 mL/min/1. 73 m2 Comment: Interpretive Data Reference Interval Normal >/= 90 mL/min/1.73m2 Mildly decreased* 60 - 89 mL/min/1.73m2 Mildly to moderately decreased 45 - 59 mL/min/1.73m2 Moderately to severely decreased 30 - 44 mL/min/1.73m2 Severely decreased 15 - 29 mL/min/1.73m2 Kidney Failure < 15 mL/min/1.73m2 *Relative to young adult level Estimated glomerular filtration rate is determined by the 2020 CKD-EPI equation recommended by the National Kidney Foundation (A Unifying Approach to GFR Estimation: Recommendations of the NKF-ASK Task Force on Reassessing the Inclusion of Race in Diagnosing Kidney Disease, JASN 2020). The CKD-EPI equation should not be used for patients with unstable renal function and has not been validated in children and those over 70. Current interpretive data was last reviewed 2021. Blood 02/01/2024 4:18 AM CDT 02/01/2024 5:15 AM CDT us Jhonatan Archer MD LAB BLOOD ORDERABLE S Final Result [facility]ZADA ([place]) 1 [facility] [place] [employer] [place] [address] * COLONOSCOPY (01/27/2020 12:13 PM CDT) Anatomical Region Laterality Modality Other Narrative Procedure Note Herson Jiang MD - 01/27/2020 12:13 PM CDT Center Patient Name: Brie North Procedure Date: 01/27/2020 12:13 PM Date of : 1960 Admit Type: Outpatient Age: 59 Gender: Male Attending MD: Herson Jiang M.D. Room: [facility] ENDOSCOPY ROOM 1 Note Status: Finalized Patient Profile: This is a 59 year old male. No family history ofcolon cancer. Screening. No specific GI complaint. Procedure: Colonoscopy Indications: Screening for colorectal malignant neoplasm, This is the patient's first colonoscopy Referring MD: Eloy Levin M.D. Providers: Herson Jiang M.D. Impression: - The entire examined colon is normal. - Internal hemorrhoids. - No specimens collected. Recommendation: - Repeat colonoscopy in 8 years for screeningpurposes. - Continue present medications. Medicines: Monitored Anesthesia Care Complications: No immediate complications. Estimated Blood Loss: Estimated blood loss: none. Procedure: Pre-Anesthesia Assessment: - Prior to the procedure, a History and Physical was performed, and patient medications and allergieswere reviewed. The patient's tolerance of previous anesthesia was also reviewed. The risks and benefitsof the procedure and the sedation options and riskswere discussed with the patient. All questions were answered, and informed consent was obtained. Prior Anticoagulants: The patient has taken no previous anticoagulant or antiplatelet agents. ASA Grade Assessment: II - A patient with mild systemicdisease. After reviewing the risks and benefits, the patientwas deemed in satisfactory condition to undergo the procedure. The benefits, risks and alternatives of theprocedure and sedation were discussed and informed consent was obtained. All questions were answered. Please referto the signed informed consent document in the medical record. The scope was passed under direct vision.The Pediatric Colonoscope [id number]-H190L [id number] was introduced through the anus and advanced to the the cecum, identified by appendiceal orifice andileocecal valve. The bowel preparation used was Miralax. The bowel preparation used was bisacodyl tablets. Bowel prep was administered using a split dose. Thequality of the bowel preparation was excellent. Findings: The perianal and digital rectal examinations were normal. The cecum appeared normal. The ileum appeared normal. The colon (entire examined portion) appeared normal. No polyps and no mass lesions noted Internal hemorrhoids were found during retroflexion. The hemorrhoids were medium size. Electronically signed by Herson Jiang M.D. Herson Jiang M.D. 01/27/2020 12:44:41 PM Number of Addenda: 0 Note Initiated On: 01/27/2020 12:13 PM Procedure Code(s): --- Professional --- 65944, Colonoscopy, flexible; diagnostic, including collection of specimen(s) by brushing or washing, when performed (separateprocedure) Diagnosis Code(s): --- Professional --- Z12.11, Encounter for screening for malignant neoplasm of colon K64.8, Other hemorrhoids CPT copyright 2017 [employer]. All rights reserved. The codes documented in this report are preliminary and upon electrical and instrumentation mechanic reviewmay be revised to meet current compliance requirements. Recognized by the [employer] for promoting quality in endoscopy Herson Jiang MD ENDOSCOPY PROCEDURES Final Result * Hepatitis C antibody (12/24/2019 9:14 AM CDT) Hep C Ab Nonreactive Nonreactive [facility] QUE[facility]ADA ([place]) Comment: Interpretive Data Nonreactive: Antibodies to HCV not detected. Does NOT exclude the possibility of recent exposure to HCV. Equivocal: Equivocal for HCV antibodies. Supplemental molecular testing will be automatically performed to determine infection status in accordance with current CDC screening recommendations. Reactive: Positive for HCV antibodies. This may represent current or past HCV infection. Supplemental molecular testing will be automatically performed to determine current infection status in accordance with current CDC screening recommendations. Interpretive data was last revised on 2019. Testing performed by: [facility], [address] [place] [address]., [id number] Blood specimen (specimen) 12/24/2019 9:14 AM CDT 12/24/2019 1:52 PM CDT Narrative [facility] QUEZADA ([place]) - 12/24/2019 3:59 PM CDT fasting us Eloy Levin MD LAB MICROBIOLOGY - GENERAL O RDERABLES Final Result [facility] QUEZADA ([place]) 1 [facility] [place] [address] from Last 3 Months or Most Recently Relevant to Health Maintenance Insurance [employer] O[employer] Advance Directives For more information, please contact: [phone] * Full Code (Latest Code Status on File) Date Activated Date Inactivated Comments 01/27/2024 1:30 AM 02/01/2024 6:05 PM * Full Code Date Activated Date Inactivated Comments 01/23/2024 11:34 AM 01/23/2024 11:56 PM * Full Code Date Activated Date Inactivated Comments 05/27/2023 10:42 AM 05/27/2023 4:58 PM * Full Code Date Activated Date Inactivated Comments 05/27/2023 10:42 AM 05/27/2023 10:42 AM * Full Code Date Activated Date Inactivated Comments 11/20/2021 11:47 AM 11/20/2021 5:45 PM Healthcare Agents on File Name Relationship [facility] Agent [facility] En[facility] North Son [facility] Alternate Health Care Agent Care Teams Sales Support Manager Relationship Specialty Start Date End Date Frankie Fisher MD [address] [place] [address] [address] [place] [address] PCP - General Family Medicine 11/12/23 Jhonatan Archer MD [address] [place] [address] [place] [address] Surgeon General Surgery 01/23/24
== END 2025-02-10 12:30 | disposition home or self-care (01) ==
LOC: ANHED 12:24
DX: S01.01XA Laceration without foreign body of scalp, initial encounter (principal); Z23 Encounter for immunization; W10.9XXA Fall (on) (from) unspecified stairs and steps, initial encounter
CPT/HCPCS: 12002; 70450; 72125; 90471; 90715; 99284; J2004